=== PATIENT | male | born 2005 | race Caucasian/White ===

== ENCOUNTER 2024-03-24 13:37 | Emergency (ER) | payer OTHER, SELFPAY ==
[2024-03-24 13:40] VITALS: BP 124/68; PULSE 98; RESP 18; TEMP 37.5; O2SAT 100; BMI 19.9
--- NOTE | 2024-03-24 14:52 | ED_ITS ---
HPI - Allergic Reaction <Saadia Correia MD - Last Filed: 03/27/24 00:28> General Chief complaint: Allergic Reaction Stated complaint: allergic reaction to medication, red all over body Time Seen by Provider: 03/24/24 13:57 Source: patient Mode of arrival: Ambulatory History of Present Illness HPI narrative: 18-year-old male presents for possible allergic reaction over body. Suspected secondary to bupropion. Patient has started bupropion on 03/13. He had his dose increased on 03/20. On 03/22 he noticed a red rash spreading over his body. It was very itchy and irritating. He has been taking Benadryl at home without relief. Also reports sore throat and swollen lymph nodes. Related Data Previous Rx's Medication Instructions Recorded bupropion HCl 150 mg 24 hr tablet, 150 mg PO QAM #90 tabs 03/12/24 extended release bupropion HCl 75 mg tablet 75 mg PO DAILY #7 tabs 03/12/24 famotidine 20 mg tablet (Pepcid) 20 mg PO DAILY #14 tabs 03/24/24 prednisone 20 mg tablet 40 mg (2 x 20 mg) PO DAILY #10 tabs 03/24/24 Allergies Allergy/AdvReac Type Severity Reaction Status Date / Time No Known Drug Allergies Allergy Unverified 03/12/24 15:52 Review of Systems <Saadia Correia MD - Last Filed: 03/27/24 00:28> Review of Systems Narrative: See HPI Patient History <Saadia Correia MD - Last Filed: 03/27/24 00:28> Medical History Migraine headache with aura Dysplastic nevi Anxiety, generalized Social History Smoking Status: Never smoker Smoking Status: Never smoker Substance Use Type: does not use Exam <Saadia Correia MD - Last Filed: 03/27/24 00:28> Initial Vital Signs Initial Vital Signs: Vital Signs Temperature 99.5 F 03/24/24 13:40 Pulse Rate 98 H 03/24/24 13:40 Respiratory Rate 18 03/24/24 13:40 Blood Pressure 124/68 03/24/24 13:40 Pulse Oximetry 100 03/24/24 13:40 Oxygen Delivery Method Room Air 03/24/24 13:40 Const: Awake, alert, no acute distress, nontoxic appearing HEENT: Mucous membranes moist, pharyngeal erythema without exudates, cervical adenopathy present Skin: Warm, Dry, diffuse urticarial rash over face, upper extremities, abdomen, lower extremities Neuro: AO x3, CN II-XII grossly intact, moves all extremities <Irma Johnston DO - Last Filed: 03/24/24 17:38> Initial Vital Signs Initial Vital Signs: Vital Signs Temperature 99.5 F 03/24/24 13:40 Pulse Rate 98 H 03/24/24 13:40 Respiratory Rate 18 03/24/24 13:40 Blood Pressure 124/68 03/24/24 13:40 Pulse Oximetry 100 03/24/24 13:40 Oxygen Delivery Method Room Air 03/24/24 13:40 Course <Saadia Correia MD - Last Filed: 03/27/24 00:28> Orders Ordered: Discontinued Medications Diphenhydramine HCl (Diphenhydramine 50 Mg/Ml Vial) 50 mg IV NOW ONE Stop: 03/24/24 14:29 Last Admin: 03/24/24 14:55 Dose: 50 mg Documented By: YADIRA Famotidine (Famotidine 20 Mg/2 Ml Vial) 20 mg IV NOW [facility] Last Admin: 03/24/24 14:58 Dose: 20 mg Documented By: YADIRA Methylprednisolone (Methylprednisolone 125 Mg/2 Ml Vial) 125 mg IV NOW ONE Stop: 03/24/24 14:29 Last Admin: 03/24/24 14:56 Dose: 125 mg Documented By: YADIRA Vital Signs Vital signs: Vital Signs - 8 hr 03/24/24 13:40 Temperature 99.5 F Pulse Rate 98 H Respiratory Rate 18 Blood Pressure 124/68 Pulse Oximetry 100 Oxygen Delivery Method Room Air <Irma Johnston DO - Last Filed: 03/24/24 17:38> Orders Ordered: Discontinued Medications Diphenhydramine HCl (Diphenhydramine 50 Mg/Ml Vial) 50 mg IV NOW ONE Stop: 03/24/24 14:29 Last Admin: 03/24/24 14:55 Dose: 50 mg Documented By: YADIRA Famotidine (Famotidine 20 Mg/2 Ml Vial) 20 mg IV NOW [facility] Last Admin: 03/24/24 14:58 Dose: 20 mg Documented By: YADIRA Methylprednisolone (Methylprednisolone 125 Mg/2 Ml Vial) 125 mg IV NOW ONE Stop: 03/24/24 14:29 Last Admin: 03/24/24 14:56 Dose: 125 mg Documented By: YADIRA Vital Signs Vital signs: Vital Signs - 8 hr 03/24/24 13:40 Temperature 99.5 F Pulse Rate 98 H Respiratory Rate 18 Blood Pressure 124/68 Pulse Oximetry 100 Oxygen Delivery Method Room Air MDM - Allergic Reaction <Saadia Correia MD - Last Filed: 03/27/24 00:28> Lab Data Labs: Lab Results 03/24/24 Range/Units 14:50 Monoscreen Positive H (Negative) Group A Strep (PCR) Negative (Negative) <Irma Johnston DO - Last Filed: 03/24/24 17:38> Lab Data Labs: Lab Results 03/24/24 Range/Units 14:50 Monoscreen Positive H (Negative) Group A Strep (PCR) Negative (Negative) MDM Narrative Medical decision making narrative: Patient signed out to me by Dr. Correia, I evaluated patient myself. He does have significant urticaria all over his upper torso and arms there are spots on his lower legs as well. No evidence of angioedema. He is positive for mono but negative for strep. Difficult to tell if this is viral reaction versus drug reaction. Reports that he was started on bupropion about a week ago and then the dose was doubled. There is no evidence of Quiñones Pierre syndrome, bupropion also does not cause this. At this time recommend that he stop the bupropion start taking allergic reaction medications. He was given Solu-Medrol Pepcid and Benadryl here in the ED without significant improvement. He also denies recent amoxicillin or antibiotic. Discussion with mom and patient rash may get worse before it gets and strict return precautions He is currently tolerating p.o. fluids Discharge Plan Departure Patient Disposition: Home Clinical Impression: Infectious mononucleosis, Urticaria Instructions: DI for Mononucleosis-Adult Activity Restrictions/Additional Instructions: *You have been diagnosed with mononucleosis and urticaria *What to do: At this time is difficult to tell if you are actually having an allergic reaction to bupropion however at this time due to rash I recommend that you stop taking this medication. The rash may also be caused from mono although not typical. With mono you will feel weak and tired for a couple of weeks. Your spleen can get enlarged avoid contact sports and high-risk activities to avoid rupturing your spleen. Rash may get worse before it gets better STOP Bupropion for now. Continue to stay hydrated *Continue to take medications as directed Prednisone 40 mg once a day for 5 days Benadryl 25-50 mg every 6 hours if needed for itching Pepcid 20 mg once daily for 5 days *Follow up with your primary care provider in 2-3 days or call [phone] *Return to ER if you should have worsening rash difficulty breathing increased confusion or any new, worsening or concerning symptoms Prescriptions: New prednisone 20 mg tablet 40 mg PO DAILY Qty: 10 0RF famotidine [Pepcid] 20 mg tablet 20 mg PO DAILY Qty: 14 0RF No Action bupropion HCl 75 mg tablet 75 mg PO DAILY Qty: 7 0RF Rx Instructions: start for one week then increase bupropion HCl 150 mg tablet extended release 24 hr 150 mg PO QAM Qty: 90 1RF Rx Instructions: start after initiating the 75 mg Referrals: Gaurang Desai, [Primary Care Provider] - Stand Alone Forms: Patient Portal/API, Work Release Note
[2024-03-24] MEDS: diphenhydrAMINE 50 MG/ML VIAL IV (14:55)
[2024-03-24] MEDS: methylPREDNISolone 125 MG/2 ML VIAL IV (14:56)
[2024-03-24] MEDS: FAMOTIDINE 20 MG/2 ML VIAL IV (14:58)
[2024-03-24 15:13] LABS: Monotest Positive (Negative)
[2024-03-24 15:30] LABS: Strep Grp A by PCR Rapid NEGATIVE (Negative)
== END 2024-03-24 16:51 | disposition home or self-care (01) ==
PROVIDERS: Emergency Medicine; Emergency Provider Emergency Medicine; PCP Family Medicine
DX: B27.90 Infectious mononucleosis, unspecified without complication (principal); L50.9 Urticaria, unspecified
CPT/HCPCS: 36415; 86318; 87651; 96374; 96375; 99284; J1200; J2919